=== PATIENT | male | born 1945 | race Caucasian/White ===

== ENCOUNTER 2017-04-12 08:18 | Emergency (ER) | payer MEDICARE, OTHER ==
[~2017-04-12 08:18] MED LIST: CIPRO PO; CLONIDINE HCL0.1 MG PO; CLOPIDOGREL75 MG PO; FLOMAX0.4 M1 PO; GLUCOTROL PO; INVOKANA100 MG PO; LIPITOR PO; LISINOPRIL-HCTZ1 T14 PO; METFORMIN HCL1000 M1 PO; METFORMIN PO; MINOXIDIL2.5 MG PO; PERCOCET PO; PHENERGAN PO; SERTRALINE HCL100 MG PO; ST. JOSEPH ASPI81 M3 PO; TOPROL XL PO; TRAZODONE HCL100 MG PO; ZOFRAN ODT4 MG PO
== END 2017-04-13 07:29 | disposition left against medical advice (07) ==
LOC: CED 08:18
DX: Z53.21 Procedure and treatment not carried out due to patient leaving prior to being seen by health care provider (principal)